=== PATIENT | male | born 1945 | race Caucasian/White ===

== ENCOUNTER 2016-05-07 14:53 | Emergency (ER) | payer OTHER ==
--- NOTE | 2016-05-07 15:01 | CPEKG ---
Heart Rate: 96 RR Interval: 625 P-R Interval: 152 QRSD Interval: 76 QT Interval: 332 QTC Interval: 420 P [place]: 58 QRS [place]: 9 T Wave [place]: 25 EKG Severity - ABNORMAL ECG - EKG Impression: SINUS RHYTHM EKG Impression: Poor R-wave progression EKG Impression: Low voltage standard leads EKG Impression: No significant change from July 13, 2013 Electronically Signed By: Gerardo Fox 08-May-2016 18:03:41
[2016-05-07] MEDS: NS 1,000 ML IV ONE (15:14)
--- NOTE | 2016-05-07 15:18 | EDPHY ---
HPI/HX/ROS/PE/MDM Narrative: CHIEF COMPLAINT: Chest pain HPI: The patient is a 71-year-old male with a history of coronary artery disease status post heart attack and stents as well as history of PE. He is currently on Plavix only. He describes approximately 4 days of chest and back pain as well as diaphoresis and overall malaise. He states the chest pain is primarily located on the left side of the chest with some radiation or odd sensation to his left arm. He denies syncope, fever or chills. He states his symptoms are somewhat similar to how he felt prior to initially being diagnosed with a heart attack several years ago. REVIEW OF SYSTEMS: Aside from elements discussed in the HPI, a comprehensive 10-point review of systems was reviewed and is negative. PMH: Includes factor 5 [place], prior [place], stents approximately 2 years ago, history of PE. SOCIAL HISTORY: Works a [employer] Artist. [employer] is through the [employer]. Patient denies alcohol or drug abuse. PHYSICAL EXAM: General:Patient is alert, in no acute distress. ENT:Eyes are normal to inspection. ENT inspection normal. Neck: Normal inspection. Full range of motion. Respiratory:No respiratory distress. Breath sounds normal bilaterally. Cardiovascular: Regular rate and rhythm. Strong peripheral pulses. Normal cap refill. Abdomen:The abdomen is nontender to palpation. There are no peritoneal signs. There are normal bowel sounds. Back: Normal to inspection. No tenderness to palpation. Skin: Normal color. No rash. Warm and dry. Extremities: Normal appearance. Full range of motion. Neuro: Oriented x3. Normal motor function. Normal sensory function. ED Course: EKG reveals normal sinus rhythm without evidence of acute infarct. MDM: This patient presents with somewhat vague symptoms of chest pain and malaise. Given his significant past medical history, we performed an extensive workup to rule out acute coronary syndrome and/or pulmonary embolus. The patient has a negative D-dimer, negative troponin, negative EKG and continues to have a reassuring exam here in the emergency department. Recommended to him that we admission to the hospital for troponin rule out and Cardiology evaluation, but the patient would like to go home and follow up with his professor of sociology as an outpatient. He understands risks of refusal including possible coronary event. He understands that we are unable to fully rule out potentially life- threatening illness with our initial round of testing here in the ER. He promises to return for any worsening of condition. - Data Points Laboratory Results: Laboratory Results 05/07/16 15:05 05/07/16 15:05 05/07/16 05/07/16 05/07/16 15:09 15:05 15:05 WBC 11.25 10^3/uL H 10^3/uL (3.80-9.50) RBC 4.55 10^6/uL 10^6/uL (4.40-6.38) Hgb 13.9 g/dL g/dL (13.7-17.5) Hct 39.7 % L % (40.0-51.0) MCV 87.3 fL fL (81.5-99.8) MCH 30.5 pg pg (27.9-34.1) MCHC 35.0 g/dL g/dL (32.4-36.7) RDW 12.0 % % (11.5-15.2) Plt Count 204 10^3/uL 10^3/uL (150-400) MPV 10.4 fL fL (8.7-11.7) Neut % (Auto) 74.6 % H % (39.3-74.2) Lymph % (Auto) 18.3 % % (15.0-45.0) [place] % (Auto) 5.7 % % (4.5-13.0) Eos % (Auto) 0.6 % % (0.6-7.6) Baso % (Auto) 0.5 % % (0.3-1.7) Nucleat RBC Rel Count 0.0 % % (0.0-0.2) Absolute Neuts (auto) 8.39 10^3/uL H 10^3/uL (1.70-6.50) Absolute Lymphs (auto) 2.06 10^3/uL 10^3/uL (1.00-3.00) Absolute Monos (auto) 0.64 10^3/uL 10^3/uL (0.30-0.80) Absolute Eos (auto) 0.07 10^3/uL 10^3/uL (0.03-0.40) Absolute Basos (auto) 0.06 10^3/uL 10^3/uL (0.02-0.10) Absolute Nucleated RBC 0.00 10^3/uL 10^3/uL (0-0.01) Immature Gran % 0.3 % % (0.0-1.1) Immature Gran # 0.03 10^3/uL 10^3/uL (0.00-0.10) D-Dimer 0.48 ug/mLFEU ug/mLFEU (0.00-0.50) Sodium 140 mEq/L mEq/L (134-144) Potassium 3.6 mEq/L mEq/L (3.5-5.2) Chloride 111 mEq/L H mEq/L (97-110) Carbon Dioxide 20 mEq/l L mEq/l (22-31) Anion Gap 9 mEq/L mEq/L (8-16) BUN 17 mg/dL mg/dL (7-23) Creatinine 0.8 mg/dL mg/dL (0.7-1.3) Estimated GFR > 60 Glucose 77 mg/dL mg/dL (70-100) Calcium 9.1 mg/dL mg/dL (8.5-10.4) Troponin I < 0.012 ng/mL ng/mL (0-0.034) Medications Given: Discontinued Medications Sodium Chloride (Ns) 1,000 mls @ 0 mls/hr IV ONCE ONE PRN Reason: Wide Open Stop: 05/07/16 15:10 Last Admin: 05/07/16 15:14 Dose: 1,000 mls General Time Seen by Provider: 05/07/16 15:04 Initial Vital Signs: Initial Vital Signs Temperature (C) 36.8 C 05/07/16 14:53 Heart Rate 107 H 05/07/16 14:53 Respiratory Rate 18 05/07/16 14:53 Blood Pressure 145/97 H 05/07/16 14:53 O2 Sat (%) 93 05/07/16 14:53 O2 Delivery Mode Room Air Allergies/Adverse Reactions: CAT HAIR Allergy (Uncoded 10/30/13 19:17) POLLEN EXTRACTS Allergy (Uncoded 10/30/13 19:17) Home Medications: Medication Instructions Recorded Altace 07/13/13 Aspirin 07/13/13 Lipitor 07/13/13 Plavix 07/13/13 Synthroid 07/13/13 Departure - Departure Disposition: Home, Routine, Self-Care Clinical Impression: Chest pain Condition: Good Instructions: Chest Pain (ED) Additional Instructions: Follow-up with your primary doctor within 72 hours. Return to the Emergency Department for fever, chest pain, shortness of breath, increasing pain or other worsening of condition. Follow up with a professor of sociology for further testing, as soon as possible, within one week. As we discussed, it is impossible to fully rule out heart disease as the cause of your chest pain in the emergency department. We would be happy to reevaluate you and observe you in the hospital at any time. Referrals: Patient,NotPresent [Unknown] - As per Instructions
[2016-05-07 16:01] LABS: ANION GAP 9 mEq/L (8-16); CALCIUM 9.1 mg/dL (8.5-10.4); CARBON DIOXIDE 20 mEq/l (22-31); CHLORIDE 111 mEq/L (97-110); CREATININE 0.8 mg/dL (0.7-1.3); GLOMERULAR FILTRATION RATE > 60; GLUCOSE 77 mg/dL (70-100); POTASSIUM 3.6 mEq/L (3.5-5.2); SODIUM 140 mEq/L (134-144)
[2016-05-07 16:12] LABS: TROPONIN I < 0.012 ng/mL (0-0.034)
[2016-05-07 16:16] LABS: % IMMATURE GRANULYOCYTES 0.3 % (0.0-1.1); ABSOLUTE IMMATURE GRANULOCYTES 0.03 10^3/uL (0.00-0.10); ADD DIFF? NO; ADD MORPH? NO; ADD SCAN? NO; ATYPICAL LYMPHOCYTE FLAG 10 (0-99); FRAGMENT RBC FLAG 0 (0-99); HEMATOCRIT 39.7 % (40.0-51.0); HEMOGLOBIN 13.9 g/dL (13.7-17.5); LEFT SHIFT FLG 0 (0-99); LIPEMIA HEMOLYSIS FLAG 90 (0-99); MEAN CELL HEMOGLOBIN 30.5 pg (27.9-34.1); MEAN CELL VOLUME 87.3 fL (81.5-99.8); MEAN PLATELET VOLUME 10.4 fL (8.7-11.7); PLATELET CLUMPS FLAG 20 (0-99); PLATELET COUNT 204 10^3/uL (150-400); RED BLOOD CELL COUNT 4.55 10^6/uL (4.40-6.38)
--- NOTE | 2016-05-07 16:47 | CPEKG ---
Heart Rate: 79 RR Interval: 759 P-R Interval: 172 QRSD Interval: 82 QT Interval: 364 QTC Interval: 418 P [place]: 69 QRS [place]: 30 T Wave [place]: 21 EKG Severity - ABNORMAL ECG - EKG Impression: SINUS RHYTHM EKG Impression: Poor R-wave progression EKG Impression: Low voltage standard leads EKG Impression: No significant change from May 07, 2016, 14:59 Electronically Signed By: Gerardo Fox 08-May-2016 18:02:20
[2016-05-07 17:00] VITALS: BP 132/85; PULSE 96; RESP 17; TEMP 98.1; O2SAT 96
== END 2016-05-07 17:00 | disposition home or self-care (01) ==
DX: R07.9 Chest pain, unspecified (principal); I25.2 Old myocardial infarction; I25.10 Atherosclerotic heart disease of native coronary artery without angina pectoris; Z79.82 Long term (current) use of aspirin